=== PATIENT | male | born 1980 | race Caucasian/White ===

== ENCOUNTER 2018-12-09 10:34 | Inpatient (IN) | payer SELFPAY ==
[2018-12-09] MEDS ORDERED: LIDOCAINE 1% MPF 5 ML VIAL ONE (11:02)
[2018-12-09] MEDS ORDERED: TETANUS & DIPHTHERIA TOX,ADULT 0.5 ML VIAL ONE (11:02)
--- NOTE | 2018-12-09 11:38 | RAD REPORT ---
EXAM DESCRIPTION: RAD - Hand Right 3 View - 12/09/2018 11:27 am CLINICAL HISTORY: Pain;Swelling COMPARISON: No comparisons FINDINGS: Significant soft tissue swelling is seen along the dorsal aspect of the hand. No subcutane ous gas is present. No fracture or foreign body. No finding to indicate osteomyelitis.
[2018-12-09] MEDS ORDERED: PIPER/TAZO/NS 3.375gm 3.375 GM/100 ML BAG ONE (12:23)
[2018-12-09] MEDS ORDERED: VANCOMYCIN/NS 1 gm 1 GM/250 ML BAG IV SCH (12:30)
[2018-12-09] MEDS ORDERED: KETOROLAC 30 MG/ML INJ ONE (13:04)
[2018-12-09 13:24] LABS: Absolute Lymphocytes (CBC) 2.6 K/uL (0.7-4.9); Basophils % 0.8 % (0-1.3); Hematocrit 37.7 % (39.6-49.0); Lymphocytes % 27.1 % (15.3-44.8)
[2018-12-09 13:31] LABS: ALT/SGPT 32 U/L (12-78); AST/SGOT 22 U/L (15-37); Albumin 3.9 g/dL (3.4-5.0); Alkaline Phosphatase 80 U/L (45-117); BUN Blood Urea Nitrogen 14 mg/dL (7-18); Bicarbonate 27 mmol/L (21-32); Bilirubin Total 0.3 mg/dL (0.2-1.0); Glucose Level 109 mg/dL (74-106); Potassium 3.5 mmol/L (3.5-5.1); Protein, Total 7.6 g/dL (6.4-8.2); Sodium Level 137 mmol/L (136-145)
--- NOTE | 2018-12-09 14:20 | ER ---
Nurse's Notes [facility] Name: Amado Beard Age: 38 yrs Sex: Male : 1980 Arrival Date: 12/09/2018 Time: 10:37 Bed 23 Private MD: Diagnosis: Cellulitis of right upper limb Presentation: 12/09 10:41 Presenting complaint: Patient states: I was injecting IV and missed in my right hand, la1 now I have an abscess. Transition of care: patient was not received from another setting of care. Onset of symptoms was December 09, 2018. Risk Assessment: Do you want to hurt yourself or someone else? Patient reports no desire to harm self or others. Initial Sepsis Screen: Does the patient meet any 2 criteria? No. Patient's initial sepsis screen is negative. Does the patient have a suspected source of infection? No. Patient's initial sepsis screen is negative. Care prior to arrival: None. 10:41 Method Of Arrival: Ambulatory la1 10:41 Acuity: WIL 3 la1 Historical: - Allergies: 10:42 No Known Allergies; la1 - Home Meds: 10:42 None [Active]; la1 - PMHx: 10:42 None; la1 - PSHx: 10:42 None; la1 - Immunization history:: Adult Immunizations up to date. - Social history:: Smoking status: Patient uses tobacco products, smokes one pack cigarettes per day. - Ebola Screening: : No symptoms or risks identified at this time. Screenin:53 Abuse screen: Denies threats or abuse. Denies injuries from another. Nutritional aj1 screening: No deficits noted. Tuberculosis screening: No symptoms or risk factors identified. 16:44 Fall Risk None identified. aj1 Assessment: 10:53 General: Appears in no apparent distress. uncomfortable, Behavior is calm, cooperative, aj1 appropriate for age. Pain: Complains of pain in right hand Pain currently is 10 out of 10 on a pain scale. Neuro: Level of Consciousness is awake, alert, obeys commands. Cardiovascular: Patient's skin is warm and dry. Respiratory: Airway is patent Respiratory effort is even, unlabored, Respiratory pattern is regular, symmetrical. GI: No signs and/or symptoms were reported involving the gastrointestinal system. : No signs and/or symptoms were reported regarding the genitourinary system. EENT: No signs and/or symptoms were reported regarding the EENT system. Derm: Redness to right hand that extends up to the mid forearm Abscess located on right hand is hot to touch, is red, is raised. Musculoskeletal: No signs and/or symptoms reported regarding the musculoskeletal system. Circulation, motion, and sensation intact. 11:45 Reassessment: Patient appears in no apparent distress at this time. No changes from aj1 previously documented assessment. Patient and/or family updated on plan of care and expected duration. Pain level reassessed. Patient is alert, oriented x 3, equal unlabored respirations, skin warm/dry/pink. 12:45 Reassessment: Patient appears in no apparent distress at this time. No changes from aj1 previously documented assessment. Patient and/or family updated on plan of care and expected duration. Pain level reassessed. Patient is alert, oriented x 3, equal unlabored respirations, skin warm/dry/pink. 13:39 Reassessment: Patient appears in no apparent distress at this time. No changes from aj1 previously documented assessment. Patient and/or family updated on plan of care and expected duration. Pain level reassessed. Patient is alert, oriented x 3, equal unlabored respirations, skin warm/dry/pink. 14:30 Reassessment: Patient and/or family updated on plan of care and expected duration. Pain aj1 level reassessed. General: Appears in no apparent distress. comfortable, Behavior is calm, cooperative. Pain: Complains of pain in right hand. Neuro: Level of Consciousness is awake, alert, obeys commands. Cardiovascular: Patient's skin is warm and dry. Respiratory: Airway is patent Respiratory effort is even, unlabored, Respiratory pattern is regular, symmetrical. Derm: redness that extends midway up right forearm Abscess located on right hand is hot to touch, is red, is raised. 15:25 Reassessment: Patient appears in no apparent distress at this time. No changes from aj1 previously documented assessment. Patient and/or family updated on plan of care and expected duration. Pain level reassessed. Patient is alert, oriented x 3, equal unlabored respirations, skin warm/dry/pink. 16:43 Reassessment: Patient appears in no apparent distress at this time. No changes from aj1 previously documented assessment. Patient and/or family updated on plan of care and expected duration. Pain level reassessed. Patient is alert, oriented x 3, equal unlabored respirations, skin warm/dry/pink. Vital Signs: 10:42 BP 137 / 95; Pulse 94; Resp 16; Temp 97.6; Pulse Ox 100% on R/A; Weight 4.54 kg; Height la1 5 ft. 10 in. (177.80 cm); 15:00 BP 118 / 90; Pulse 74; Resp 18; Pulse Ox 97% on R/A; aj1 16:21 BP 126 / 87; Pulse 82; Resp 16; Pulse Ox 100% on R/A; aj1 10:42 Body Mass Index 1.43 (4.54 kg, 177.80 cm) la1 ED Course: 10:37 Patient arrived in ED. mr 10:42 Triage completed. la1 10:42 Dipak Bess NP is PHCP. pm1 10:42 Arnold Brooks MD is Attending Physician. pm1 10:42 Arm band placed on right wrist. la1 10:49 Aundrea Albert RN is Primary Nurse. aj1 10:53 Patient has correct armband on for positive identification. Call light in reach. aj1 10:53 No provider procedures requiring assistance completed. aj1 11:25 X-ray completed. Portable x-ray completed in exam room. Patient tolerated procedure mh1 well. 11:28 Hand Right 3 View XRAY In Process Unspecified. EDMS 12:45 Inserted saline lock: 22 gauge in right antecubital area, using aseptic technique. aj1 Blood collected. 14:19 Eben Ng MD is Hospitalizing Provider. pm1 16:21 Report given to SAMIR Moran on 4th floor. aj1 16:42 Patient admitted, IV remains in place. aj1 Administered Medications: 13:08 Drug: Tetanus-Diphtheria Toxoid Adult 0.5 ml {Admitting Counselor: [employer]. Exp: aj1 07/15/2020. Lot #: [id number]. } Route: IM; Site: left deltoid; 13:30 Follow up: Response: No adverse reaction aj1 13:08 Drug: Zosyn 3.375 grams Route: IVPB; Infused Over: 60 mins; Site: right antecubital; aj1 14:10 Follow up: IV Status: Completed infusion; IV Intake: 100ml aj1 13:31 Drug: TORadol - Ketorolac 15 mg Route: IVP; Site: right antecubital; aj1 14:00 Follow up: Response: No adverse reaction aj1 14:30 Drug: vancoMYCIN 1 grams Route: IVPB; Infused Over: 2 hrs; Site: right antecubital; aj1 16:42 Not Given (Physician Discretion): Lidocaine (1 %) 5 ml 5 ml Infiltration once; to aj1 bedside Intake: 14:10 IV: 100ml; Total: 100ml. aj1 Outcome: 14:20 Decision to Hospitalize by Provider. pm1 16:44 Admitted to Med/surg accompanied by tech, via wheelchair, with chart. aj1 16:44 Condition: good 16:44 Discharge instructions given to patient, Instructed on the need for admit, Demonstrated understanding of instructions. 16:44 Patient left the ED. aj1 Signatures: Dispatcher [employer] EDMS Aundrea Albert RN RN aj1 Nicole Anders Rashaun Prealesha [facility] Westley Gonzáles RN RN la1 Dipak Bess, NUCLEAR PLANT EQUIPMENT OPERATOR NUCLEAR PLANT EQUIPMENT OPERATOR pm1 Corrections: (The following items were deleted from the chart) 12:07 10:41 Acuity: WIL 4 la1 la1
--- NOTE | 2018-12-09 14:21 | EDPHYS ---
Physician Documentation [facility] Name: Amado Beard Age: 38 yrs Sex: Male : 1980 Arrival Date: 12/09/2018 Time: 10:37 Bed 23 Private MD: ED Physician Arnold Brooks HPI: 12/09 12:15 This 38 yrs old Male presents to ER via Ambulatory with complaints of Abscess.pm1 12:15 The patient presents with an abscess of the right hand, the patient presents with a pm1 swollen area of the right hand. Description: raised, swollen, tense. Onset: The symptoms/episode began/occurred 2 day(s) ago. Possible cause(s): drug injection into right hand. Associated signs and symptoms: Pertinent negatives: discharge, drainage, foreign body sensation, fever. Modifying factors: the symptoms are alleviated by nothing, the symptoms are aggravated by touching. Severity of symptoms: in the emergency department the symptoms are actually worse. The patient has not experienced similar symptoms in the past. The patient has not recently seen a physician. Historical: - Allergies: 10:42 No Known Allergies; la1 - Home Meds: 10:42 None [Active]; la1 - PMHx: 10:42 None; la1 - PSHx: 10:42 None; la1 - Immunization history:: Adult Immunizations up to date. - Social history:: Smoking status: Patient uses tobacco products, smokes one pack cigarettes per day. - Ebola Screening: : No symptoms or risks identified at this time. ROS: 12:15 Constitutional: Negative for fever, chills, and weight loss, Eyes: Negative for injury, pm1 pain, redness, and discharge, ENT: Negative for injury, pain, and discharge, Neck: Negative for injury, pain, and swelling, Cardiovascular: Negative for chest pain, palpitations, and edema, Respiratory: Negative for shortness of breath, cough, wheezing, and pleuritic chest pain, Abdomen/GI: Negative for abdominal pain, nausea, vomiting, diarrhea, and constipation, Back: Negative for injury and pain. 12:15 MS/extremity: Positive for pain, swelling, tenderness, of the right hand. 12:15 Skin: Positive for cellulitis, of the dorsal aspect of right forearm, right wrist and right hand, Abscess right hand. Exam: 12:15 Constitutional: This is a well developed, well nourished patient who is awake, alert, pm1 and in no acute distress. Head/Face: Normocephalic, atraumatic. Neck: Trachea midline, no thyromegaly or masses palpated, and no cervical lymphadenopathy. Supple, full range of motion without nuchal rigidity, or vertebral point tenderness. No Meningismus. Chest/axilla: Normal chest wall appearance and motion. Nontender with no deformity. No lesions are appreciated. Cardiovascular: Regular rate and rhythm with a normal S1 and S2. No gallops, murmurs, or rubs. Normal PMI, no JVD. No pulse deficits. Respiratory: Lungs have equal breath sounds bilaterally, clear to auscultation and percussion. No rales, rhonchi or wheezes noted. No increased work of breathing, no retractions or nasal flaring. Abdomen/GI: Soft, non-tender, with normal bowel sounds. No distension or tympany. No guarding or rebound. No evidence of tenderness throughout. Back: No spinal tenderness. No costovertebral tenderness. Full range of motion. 12:15 Musculoskeletal/extremity: Extremities: grossly normal except: noted in the right arm and right wrist and dorsal aspect of right forearm: erythema, swelling, tenderness, noted in the right hand: abscess . Vital Signs: 10:42 BP 137 / 95; Pulse 94; Resp 16; Temp 97.6; Pulse Ox 100% on R/A; Weight 4.54 kg; Height la1 5 ft. 10 in. (177.80 cm); 15:00 BP 118 / 90; Pulse 74; Resp 18; Pulse Ox 97% on R/A; aj1 16:21 BP 126 / 87; Pulse 82; Resp 16; Pulse Ox 100% on R/A; aj1 10:42 Body Mass Index 1.43 (4.54 kg, 177.80 cm) la1 MDM: 10:42 Patient medically screened. pm1 11:45 Counseling: I had a detailed discussion with the patient and/or guardian regarding: the pm1 historical points, exam findings, and any diagnostic results supporting the discharge/admit diagnosis, the need for further work-up and treatment in the hospital. 11:45 ED course: Dr. Lauren evaluated patient's hand and recommended that I\T\D be performed pm1 by hand surgeon instead of me. 12:03 Data reviewed: vital signs. Data interpreted: Pulse oximetry: on room air is 100 %. pm1 Interpretation: normal. 13:54 Refusal of service: The patient/guardian displays adequate decision making capability pm1 and despite a detailed discussion of alternatives, benefits, risks, and consequences refuses: Admission to the hospital for further work-up and treatment, Educated patient further on need for treatment in the hospital and evaluation by hand surgeon. Will need to transfer the patient due to lack of speciality here in the hospital. Asked patient to reconsider and will check with the patient in a few minutes. 14:15 Physician consultation: Fred Mehta MD was called at 14:08, was contacted at 14:08, pm1 would like admission per Dr. Eben Ng MD in the emergency department to see patient at 14:15, NPO at midnight. 14:47 Physician consultation: Eben Ng MD was called at 14:49, was contacted at 14:49, pm1 regarding admission, patient's condition, and will see patient. 12/09 11:50 Order name: CBC with Diff; Complete Time: 13:38 pm1 12/09 11:50 Order name: CMP; Complete Time: 13:38 pm1 12/09 10:58 Order name: Hand Right 3 View XRAY; Complete Time: 11:44 pm1 12/09 12:07 Order name: Blood Culture Adult (2) pm1 12/09 10:58 Order name: Incision \T\ Drainage Setup; Complete Time: 11:01 pm1 12/09 11:50 Order name: IV Saline Lock; Complete Time: 13:15 pm1 12/09 15:02 Order name: Diet Regular; Complete Time: 15:03 aj1 Administered Medications: 13:08 Drug: Tetanus-Diphtheria Toxoid Adult 0.5 ml {[employer] Man: [employer]. Exp: aj1 07/15/2020. Lot #: [id number]. } Route: IM; Site: left deltoid; 13:30 Follow up: Response: No adverse reaction aj 13:08 Drug: Zosyn 3.375 grams Route: IVPB; Infused Over: 60 mins; Site: right antecubital; aj 14:10 Follow up: IV Status: Completed infusion; IV Intake: 100ml aj1 13:31 Drug: TORadol - Ketorolac 15 mg Route: IVP; Site: right antecubital; aj1 14:00 Follow up: Response: No adverse reaction aj1 14:30 Drug: vancoMYCIN 1 grams Route: IVPB; Infused Over: 2 hrs; Site: right antecubital; aj1 16:42 Not Given (Physician Discretion): Lidocaine (1 %) 5 ml 5 ml Infiltration once; to aj1 bedside Disposition: 12/10 05:51 Co-signature as Attending Physician, rAnold Brooks MD I agree with the assessment and john plan of care. PA/SENIOR PROGRAM ANALYST's history reviewed, patient interviewed, and examined. Disposition: 12/09/18 14:20 Hospitalization ordered by Eben Ng for Inpatient Admission. Preliminary diagnosis is Cellulitis of right upper limb. - Bed requested for Telemetry/MedSurg (Inpatient). - Status is Inpatient Admission. aj1 - Condition is Stable. - Problem is new. - Symptoms have improved. UTI on Admission? No Signatures: Dispatcher [employer] EDMS Tamra Mohr Angela, RN RN aj1 Arnold Brooks MD MD cha Attema, Lee, RN RN la1 Dipak Bess, RAPHAEL SENIOR PROGRAM ANALYST pm1 Corrections: (The following items were deleted from the chart) 12/09 15:32 14:20 Hospitalization Ordered by Eben Ng MD for Inpatient Admission. Preliminary bd diagnosis is Cellulitis of right upper limb. Bed requested for Telemetry/MedSurg (Inpatient). Status is Inpatient Admission. Condition is Stable. Problem is new. Symptoms have improved. UTI on Admission? No. pm1 16:44 15:32 12/09/2018 14:20 Hospitalization Ordered by Eben Ng MD for Inpatient aj1 Admission. Preliminary diagnosis is Cellulitis of right upper limb. Bed requested for Telemetry/MedSurg (Inpatient). Status is Inpatient Admission. Condition is Stable. Problem is new. Symptoms have improved. UTI on Admission? No. bd
--- NOTE | 2018-12-09 16:03 | P.HP ---
Certification for Inpatient Patient admitted to: Inpatient With expected LOS: >2 Midnights Practitioner: I am a practitioner with admitting privileges, knowledge of patient current condition, hospital course, and medical plan of care. Services: Services provided to patient in accordance with Admission requirements found in Title 42 Section 412.3 of the Code of Federal Regulations Patient History Date of Service: 12/09/18 Reason for admission: right hand abscess History of Present Illness: This is a 38 yr old IVD user male with no other medical history who presented to the ER with Right hand swelling and a boil after shooting up meth and missing his veins. He states, this happened a few days ago. He endorses pain to the area but no other fevers, chills, N/V, CP, SOB, RUIZ, vision/speech changes , light headedness. He states that he also had a similar episode on the other hand a while ago, he had swelling but it resolved on its own. He uses IV heroine as well as methamphetamines. He started a few years ago and states he does not do it consistently or too often. He is a current 1 -2 PPD smoker for 24 yrs. In the ER, patient was HDS with BP of 137/95, HR 95, RR 16, afebrile 97.6 and 100% on RA. His labs were unremarkable. Hand X-ray showed soft tissue swelling without OM findings. Dr. Mehta was consulted from the ER, and saw the patient in the ER. At the time of my exam, he was AAOx3, in mild distress due to pain and hemodynamically stable. Allergies NKDA Allergy (Uncoded 07/20/13 04:55) Unknown No Known Allergi Allergy (Uncoded 09/19/15 16:23) Unknown Home medications list reviewed: Yes - Past Medical/Surgical History Diabetic: No Past Medical History: Patient denies medical history - Social History Smoking Status: Current every day smoker Smoking therapy provided: Yes Patient receptive to therapy: No CD- Drugs: Yes Review of Systems 10-point ROS is otherwise unremarkable Physical Examination - Physical Exam General: Alert, In no apparent distress, Oriented x3 HEENT: Atraumatic, PERRLA, Mucous membr. moist/pink, EOMI, Sclerae nonicteric Neck: Supple, 2+ carotid pulse no bruit, No LAD, Without JVD or thyroid abnormality Respiratory: Clear to auscultation bilaterally, Normal air movement Cardiovascular: Regular rate/rhythm, Normal S1 S2 Gastrointestinal: Normal bowel sounds, No tenderness Musculoskeletal: Swelling (Right hand; area of abscess noted on right hand, tenderness up to right elbow. Neurovascularly intact), Erythema, Tenderness, Warmth Integumentary: No rashes Neurological: Normal gait, Normal speech, Normal strength at 5/5 x4 extr, Normal tone, Normal affect Lymphatics: No axilla or inguinal lymphadenopathy - Studies Laboratory Data (last 24 hrs) 12/09/18 12:55: Sodium 137, Potassium 3.5, BUN 14, Creatinine 0.78, Glucose 109 H, Total Bilirubin 0.3, AST 22, ALT 32, Alkaline Phosphatase 80 12/09/18 12:55: WBC 9.7, Hgb 13.5 L, Hct 37.7 L, Plt Count 326 Assessment and Plan - Problems (Diagnosis) (1) Abscess of right hand Current Visit: Yes Status: Acute Plan: Secondary to IV/needle use -IV antibiotics for broad spectrum coverage: Vancomycin and cefepime -Dr. Mehta consulted, recommendations appreciated. Patient pending OR for I& D tomorrow. -NPO after midnight -Monitor vitals and labs (2) IV drug user Current Visit: Yes Status: Acute Plan: Counseled -Patient endorses to using heroine and methamphetamines - Plan DVT Prophylaxis: Hold Chem AC for surgery tomorrow GI Prophylaxis: None Diet: Regular; NPO post midnight Disposition: Pending OR tomorrow for I&D with Dr. Mehta. - Advance Directives Does patient have a Living Will: No Does patient have a Durable POA for Healthcare: No
[2018-12-09] MEDS ORDERED: ONDANSETRON 4 MG/2 ML VIAL IV PRN (17:20)
[2018-12-09 17:43] VITALS: BMI 27.2
[2018-12-09] MEDS: NA CHLORIDE 0.9% 1,000 ML IV SCH (18:17)
[2018-12-09] MEDS: MORPHINE 4 MG/ML SYR IV PRN (20:39)
[2018-12-09] MEDS ORDERED: INFLUENZA VACCINE (for 3y+) 0.5 ML DOSE IMVAC ONE (21:00)
[2018-12-09] MEDS ORDERED: POTASSIUM CL SA 10 MEQ TAB PO ONE (21:00)
[2018-12-10] MEDS: MORPHINE 4 MG/ML SYR IV PRN ×4 (01:05→22:08)
[2018-12-10] MEDS: NA CHLORIDE 0.9% 1,000 ML IV SCH ×4 (05:15→23:20)
[2018-12-10 05:35] LABS: ALT/SGPT 30 U/L (12-78); AST/SGOT 22 U/L (15-37); Albumin 3.2 g/dL (3.4-5.0); Alkaline Phosphatase 73 U/L (45-117); BUN Blood Urea Nitrogen 14 mg/dL (7-18); Bicarbonate 28 mmol/L (21-32); Bilirubin Total 0.4 mg/dL (0.2-1.0); Glucose Level 85 mg/dL (74-106); Potassium 4.6 mmol/L (3.5-5.1); Protein, Total 6.5 g/dL (6.4-8.2); Sodium Level 142 mmol/L (136-145)
[2018-12-10 05:51] LABS: Absolute Lymphocytes (CBC) 2.7 K/uL (0.7-4.9); Basophils % 0.7 % (0-1.3); Hematocrit 37.9 % (39.6-49.0); MPV 8.1 fL (7.6-11.3); RBC Red Blood Cell Count 4.16 M/uL (4.33-5.43)
[2018-12-10 08:48] LABS: Blood Morphology Comment NOT SEEN (NOT SEEN); Platelet Estimate ADEQ; Urine White Blood Cell Casts OK
--- NOTE | 2018-12-10 10:23 | P.PN ---
Subjective Date of Service: 12/10/18 Chief Complaint: right hand abscess Subjective: No new changes Patient seen and examined at bedside. Chart reviewed and case discussed with nursing staff. Pending I&D of hand with Dr. herrera Review of Systems 10-point ROS is otherwise unremarkable Physical Examination - Vital Signs Temperature: 97.1 F Blood Pressure: 107/65 Pulse: 51 Respirations: 17 Pulse Ox (%): 100 - Physical Exam General: Alert, In no apparent distress, Oriented x3 HEENT: Atraumatic, PERRLA, EOMI Neck: Supple, JVD not distended Respiratory: Clear to auscultation bilaterally, Normal air movement Cardiovascular: Regular rate/rhythm, Normal S1 S2 Gastrointestinal: Normal bowel sounds, No tenderness Musculoskeletal: Erythema, Tenderness, Warmth (Right hand) Neurological: Normal speech, Normal tone, Normal affect Lymphatics: No axilla or inguinal lymphadenopathy - Studies Laboratory Data (last 24 hrs) 12/09/18 12:55: Sodium 137, Potassium 3.5, BUN 14, Creatinine 0.78, Glucose 109 H, Total Bilirubin 0.3, AST 22, ALT 32, Alkaline Phosphatase 80 12/09/18 12:55: WBC 9.7, Hgb 13.5 L, Hct 37.7 L, Plt Count 326 Assessment And Plan - Current Problems (Diagnosis) (1) Abscess of right hand Current Visit: Yes Status: Acute Plan: Secondary to IV/needle use -IV antibiotics for broad spectrum coverage: Vancomycin and cefepime -Dr. Herrera consulted, recommendations appreciated. Patient pending OR for I& D today. -NPO after midnight -Monitor vitals and labs (2) IV drug user Current Visit: Yes Status: Acute Plan: Counseled -Patient endorses to using heroine and methamphetamines - Plan DVT Prophylaxis: Hold Chem AC for surgery tomorrow GI Prophylaxis: None Diet: Regular; NPO post midnight Disposition: Pending OR today for I&D with Dr. Herrera.
[2018-12-10] MEDS: VANCOMYCIN 1.5 GM in NA CHLORIDE 0.9% 500 ML IVPB SCH (11:23)
[2018-12-10] MEDS: CEFEPIME/SWI 1gm 10 ML IV SCH ×2 (11:24→16:08)
[2018-12-10] MEDS ORDERED: FENTANYL CITR 100 MCG/2 ML ONE (11:32)
[2018-12-10] MEDS ORDERED: MIDAZOLAM HCL 2 MG/2 ML INJ ONE ×3 (11:32→13:40)
[2018-12-10] MEDS ORDERED: PROPOFOL 200 MG/20 ML VIAL IV ONE (11:32)
[2018-12-10] MEDS ORDERED: LIDOCAINE 2% MPF 5 ML VIAL ONE (11:33)
[2018-12-10] MEDS ORDERED: ONDANSETRON 4 MG/2 ML VIAL ONE (11:34)
[2018-12-10] MEDS ORDERED: NA CIT/CITRIC AC 30 ML ORAL UDC ONE (11:43)
[2018-12-10] MEDS ORDERED: Ringers Lactate 1,000 ML IV ONE (12:43)
[2018-12-10] MEDS ORDERED: PROMETHAZINE 25 MG/ML VIAL ONE (13:33)
[2018-12-10] MEDS: HYDROMORPHONE HCL 1 MG/ML INJ ONE ×4 (13:34→13:56)
[2018-12-10] MEDS: NICOTINE 21 MG/PAT TD SCH (17:38)
--- NOTE | 2018-12-11 00:17 | OP ---
Surgeon: Fred Mehta MD Preoperative Diagnosis: Abscess of the right dorsal hand. Postoperative Diagnosis: Abscess of the right dorsal hand. Procedure Performed: Incision and drainage of abscess. Anesthesia: General. Description Of Procedure: After satisfactory induction of general anesthesia the right hand was elev ated and then placed on a hand table. A curved incision was made over the abscess, pus was encounter ed. Cultures were taken. Curette was used for debridement and the wound was jet lavage irrigated wi th 3 L of dilute solution. Tourniquet released. Electrocautery was used for hemostasis. Wound pack ed with 1/4-inch Nu Gauze soaked in Betadine and Kerlix. The patient tolerated the procedure well an d returned to recovery. EVERETT/QUIRINO Voice ID: [id number] Report ID: [id number]
[2018-12-11] MEDS: CEFEPIME/SWI 1gm 10 ML IV SCH ×3 (01:52→18:24)
[2018-12-11] MEDS: VANCOMYCIN 1.5 GM in NA CHLORIDE 0.9% 500 ML IVPB SCH ×3 (01:52→21:00)
[2018-12-11 04:37] LABS: Absolute Lymphocytes (CBC) 2.4 K/uL (0.7-4.9); Basophils % 0.7 % (0-1.3); Hematocrit 35.4 % (39.6-49.0); Lymphocytes % 40.4 % (15.3-44.8); MPV 8.1 fL (7.6-11.3); RBC Red Blood Cell Count 3.95 M/uL (4.33-5.43)
[2018-12-11 04:58] LABS: ALT/SGPT 26 U/L (12-78); AST/SGOT 22 U/L (15-37); Albumin 3.1 g/dL (3.4-5.0); Alkaline Phosphatase 65 U/L (45-117); BUN Blood Urea Nitrogen 13 mg/dL (7-18); Bicarbonate 29 mmol/L (21-32); Bilirubin Total 0.4 mg/dL (0.2-1.0); Glucose Level 102 mg/dL (74-106); Protein, Total 6.2 g/dL (6.4-8.2); Sodium Level 140 mmol/L (136-145)
[2018-12-11] MEDS: MORPHINE 4 MG/ML SYR IV PRN ×2 (05:09→08:49)
[2018-12-11] MEDS: NICOTINE 21 MG/PAT TD SCH (07:59)
[2018-12-11] MEDS: NA CHLORIDE 0.9% 1,000 ML IV SCH ×2 (09:20→19:20)
--- NOTE | 2018-12-11 11:15 | P.PN ---
Subjective Date of Service: 12/11/18 Chief Complaint: right hand abscess Subjective: Improving Patient seen and examined at bedside. Chart reviewed and case discussed with nursing staff. s/p I&D of hand with Dr. herrera Doing well post procedure Review of Systems 10-point ROS is otherwise unremarkable Physical Examination - Vital Signs Temperature: 97.6 F Blood Pressure: 111/70 Pulse: 56 Respirations: 16 Pulse Ox (%): 100 - Physical Exam General: Alert, In no apparent distress, Oriented x3 HEENT: Atraumatic, PERRLA, EOMI Neck: Supple, JVD not distended Respiratory: Clear to auscultation bilaterally, Normal air movement Cardiovascular: Regular rate/rhythm, Normal S1 S2 Gastrointestinal: Normal bowel sounds, No tenderness Musculoskeletal: No tenderness Integumentary: Other (right hand: wound opened, no draining, no bleeding. ) Neurological: Normal speech, Normal tone, Normal affect Assessment And Plan - Current Problems (Diagnosis) (1) Abscess of right hand Current Visit: Yes Status: Acute Plan: Secondary to IV/needle use -IV antibiotics for broad spectrum coverage: Vancomycin and cefepime -Dr. Herrera consulted, recommendations appreciated. Patient s/p I&D POD#1 -Monitor vitals and labs -Pending cultures (2) IV drug user Current Visit: Yes Status: Acute Plan: Counseled -Patient endorses to using heroine and methamphetamines - Plan DVT Prophylaxis: Encourage ambulation GI Prophylaxis: None Diet: Regular; Regular Disposition: pending symptomatic improvement. Continue wound care. Anticipate discharge tomorrow.
[2018-12-11 12:19] VITALS: O2SAT 99
--- NOTE | 2018-12-11 15:23 | PN ---
The patient's dressing change being done today. He underwent incision and drainage yesterday to jennifer ceballos present he can go home and do dressing himself. If possible . EVERETT/QUIRINO Voice ID: [id number] Report ID: [id number]
[2018-12-11] MEDS ORDERED: TRAMADOL HCL 50 MG TAB PO PRN (18:34)
[2018-12-11] MEDS: MEPERIDINE HCL 50 MG/ML IM PRN (20:01)
[2018-12-12] MEDS: CEFEPIME/SWI 1gm 10 ML IV SCH ×3 (00:11→15:56)
[2018-12-12 06:54] LABS: Absolute Lymphocytes (CBC) 2.2 K/uL (0.7-4.9); Basophils % 1.1 % (0-1.3); Lymphocytes % 42.2 % (15.3-44.8); RBC Red Blood Cell Count 4.22 M/uL (4.33-5.43)
[2018-12-12 07:07] LABS: ALT/SGPT 32 U/L (12-78); AST/SGOT 27 U/L (15-37); Albumin 3.2 g/dL (3.4-5.0); Alkaline Phosphatase 70 U/L (45-117); BUN Blood Urea Nitrogen 12 mg/dL (7-18); Bicarbonate 30 mmol/L (21-32); Bilirubin Total 0.3 mg/dL (0.2-1.0); Glucose Level 85 mg/dL (74-106); Protein, Total 6.8 g/dL (6.4-8.2); Sodium Level 142 mmol/L (136-145)
[2018-12-12] MEDS: NICOTINE 21 MG/PAT TD SCH (08:08)
[2018-12-12] MEDS: VANCOMYCIN 1.5 GM in NA CHLORIDE 0.9% 500 ML IVPB SCH (08:08)
[2018-12-12] MEDS: MEPERIDINE HCL 50 MG/ML IM PRN (08:18)
[2018-12-12 09:25] LABS: Blood Morphology Comment NOT SEEN (NOT SEEN); Platelet Estimate ADEQ
[2018-12-12] MEDS ORDERED: DIPHENHYDRAMINE 25 MG TAB/CAP PO ONE (12:18)
--- NOTE | 2018-12-12 12:28 | P.DS ---
Admission Date: 12/09/18 Discharge Date: 12/12/18 Disposition: ROUTINE DISCHARGE Discharge Condition: GOOD Reason for Admission: right hand abscess Consultations: Dr. Mehta Procedures: 12/11/2018: I and D of abscess on hand - Problems (1) Abscess of right hand Current Visit: Yes Status: Acute (2) IV drug user Current Visit: Yes Status: Acute Brief History of Present Illness: This is a 38 yr old IVD user male with no other medical history who presented to the ER with Right hand swelling and a boil after shooting up meth and missing his veins. He states, this happened a few days ago. He endorses pain to the area but no other fevers, chills, N/V, CP, SOB, RUIZ, vision/speech changes , light headedness. He states that he also had a similar episode on the other hand a while ago, he had swelling but it resolved on its own. He uses IV heroine as well as methamphetamines. He started a few years ago and states he does not do it consistently or too often. He is a current 1 -2 PPD smoker for 24 yrs. In the ER, patient was HDS with BP of 137/95, HR 95, RR 16, afebrile 97.6 and 100% on RA. His labs were unremarkable. Hand X-ray showed soft tissue swelling without OM findings. Dr. Mehta was consulted from the ER, and saw the patient in the ER. At the time of my exam, he was AAOx3, in mild distress due to pain and hemodynamically stable. Hospital Course: Patient was admitted for an abscess on the right hand, secondary to IV/needle use. He was started on IV antibiotics for broad-spectrum coverage. Dr. her jok he was consulted, patient underwent an I and D. He tolerated the procedure well. Blood cultures remained negative throughout the stay. He was then cleared for discharge by surgery. He was taught how to change bandages and wound care by the nurses prior to discharge. Prior to discharge, he was tolerating an oral diet, he was hemodynamically stable and was done well otherwise clindamycin and doxycycline. Prescription was picked up from the pharmacy for the patient and brought to the hospital prior to patient leaving the hospital. He was counseled on drug usage cessation, the patient did not seem interested in it at this time. His diagnoses and treatment plan was explained to him, all questions were answered and he verbalized understanding. He was then discharged home a safe and stable manner. Vital Signs/Physical Exam: Temp Pulse Resp BP Pulse Ox 97.6 F 65 20 128/63 100 12/12/18 08:00 12/12/18 08:00 12/12/18 08:48 12/12/18 08:00 12/12/18 08:48 General: Alert, In no apparent distress, Oriented x3 HEENT: Atraumatic, PERRLA, EOMI Neck: Supple, JVD not distended Respiratory: Clear to auscultation bilaterally, Normal air movement Cardiovascular: Regular rate/rhythm, Normal S1 S2 Gastrointestinal: Normal bowel sounds, No tenderness Musculoskeletal: No tenderness, Other (Bandage clear, dry and intact) Integumentary: No rashes Neurological: Normal speech, Normal tone, Normal affect Lymphatics: No axilla or inguinal lymphadenopathy Laboratory Data at Discharge: WBC 5.3 K/uL (4.3-10.9) 12/12/18 06:00 Hgb 13.7 g/dL (13.6-17.9) 12/12/18 06:00 Hct 38.0 % (39.6-49.0) L 12/12/18 06:00 Plt Count 283 K/uL (152-406) 12/12/18 06:00 Sodium 142 mmol/L (136-145) 12/12/18 06:00 Potassium 4.0 mmol/L (3.5-5.1) 12/12/18 06:00 BUN 12 mg/dL (7-18) 12/12/18 06:00 Creatinine 0.67 mg/dL (0.55-1.3) 12/12/18 06:00 Glucose 85 mg/dL (74-106) 12/12/18 06:00 Total Bilirubin 0.3 mg/dL (0.2-1.0) 12/12/18 06:00 AST 27 U/L (15-37) 12/12/18 06:00 ALT 32 U/L (12-78) 12/12/18 06:00 Alkaline Phosphatase 70 U/L (45-117) 12/12/18 06:00 Home Medications: RX: Buprenorphine HCl 8 mg SL Q12HR 12/09/18 RX: Clindamycin HCl 150 mg PO Q8H #30 capsule 12/12/18 RX: Doxycycline Hyclate 100 mg PO BID #20 capsule 12/12/18 RX: traMADol HCL [Ultram*] 50 mg PO Q6H PRN #15 tab 12/12/18 New Medications: RX: Clindamycin HCl 150 mg PO Q8H #30 capsule RX: Doxycycline Hyclate 100 mg PO BID #20 capsule RX: traMADol HCL [Ultram*] 50 mg PO Q6H PRN #15 tab PRN Reason: Pain Scale 2-4 (Mild) Patient Discharge Instructions: Please follow up with Dr. Mehta in 1-2 weeks. Return to the emergency room for worsening symptoms Diet: Regular Activity: Ad nupur Followup: Fred Mehta MD [ACTIVE - CAN ADMIT] - Time spent managing pt's care (in minutes): 55
[2018-12-12] MEDS: NA CHLORIDE 0.9% 1,000 ML IV SCH (15:20)
[2018-12-12 16:28] VITALS: BP 142/83; TEMP 97.2
[2018-12-12] MEDS ORDERED: INFLUENZA VACCINE (for 3y+) 0.5 ML DOSE IMVAC ONE (17:00)
== END 2018-12-12 16:39 | disposition home or self-care (01) | DRG 581 ==
LOC: ER 10:34 → ERHOLD 15:18 → 4TH 16:38
PROVIDERS: ADMIT Family Medicine; ATTEND Family Medicine
PROC: 0J9J0ZZ Drainage of Right Hand Subcutaneous Tissue and Fascia, Open Approach (ICD-10-PCS; principal; 2018-12-10 13:00)
DX: L02.511 Cutaneous abscess of right hand (principal); F17.210 Nicotine dependence, cigarettes, uncomplicated; F15.10 Other stimulant abuse, uncomplicated; F11.10 Opioid abuse, uncomplicated
CPT/HCPCS: 36415; 80053; 80202; 85025; 87040; 87070; 87075; 87205; 90471; 90714; 94760; 96365; 96375; 99285; J0692; J1170; J2175; J2250; J2405; J2543; J2550; J2704; J3010; J3370; J7030; J7040; J7120

== ENCOUNTER 2019-03-13 09:30 | Emergency (ER) | payer SELFPAY ==
[2019-03-13] MEDS ORDERED: LIDOCAINE 1% MPF 5 ML VIAL ONE (09:41)
[2019-03-13] MEDS ORDERED: BUPIVACAINE 0.5% PF 10 ML VIAL ONE (09:41)
[2019-03-13] MEDS ORDERED: LIDOCAINE 1% 20 ML MDV ONE (09:43)
[2019-03-13] MEDS ORDERED: CEFAZOLIN/SWI 1gm 1 GM/10 ML SYR ONE (09:47)
[2019-03-13] MEDS ORDERED: TETANUS & DIPHTHERIA TOX,ADULT 0.5 ML VIAL ONE (09:47)
[2019-03-13] MEDS ORDERED: ONDANSETRON 4 MG/2 ML VIAL ONE (09:56)
[2019-03-13] MEDS ORDERED: NA CHLORIDE 0.9% 1,000 ML ONE (09:56)
[2019-03-13] MEDS ORDERED: MORPHINE 4 MG/ML SYR ONE ×2 (09:56→10:24)
[2019-03-13 10:01] LABS: Absolute Lymphocytes (CBC) 2.7 K/uL (0.7-4.9); Basophils % 0.9 % (0-1.3); Lymphocytes % 32.9 % (15.3-44.8); MPV 8.3 fL (7.6-11.3); RBC Red Blood Cell Count 4.73 M/uL (4.33-5.43)
[2019-03-13 10:11] LABS: Potassium 4.4 mmol/L (3.5-5.1)
--- NOTE | 2019-03-13 10:46 | ER ---
Nurse's Notes [facility] Name: Amado Beard Age: 38 yrs Sex: Male : 1980 Arrival Date: 03/13/2019 Time: 09:37 Bed 23 Private MD: Diagnosis: Laceration without foreign body of left thumb with damage to nail-partial distal phalanx amputation Presentation: 03/13 09:37 Presenting complaint: Patient states: amputation to portion of L thumb by chop saw 30 ss minutes ago. Dressing placed by EMS, 17 mg of Ketamine administered for pain control. Transition of care: patient was not received from another setting of care. Onset of symptoms was March 13, 2019. Risk Assessment: Do you want to hurt yourself or someone else? Patient reports no desire to harm self or others. Initial Sepsis Screen: Does the patient meet any 2 criteria? RR > 20 per min. HR > 90 bpm. Does the patient have a suspected source of infection? No. Patient's initial sepsis screen is negative. Care prior to arrival: None. 09:37 Method Of Arrival: Ambulatory ss 09:37 Acuity: WIL 2 ss Historical: - Allergies: 09:42 No Known Allergies; ss - Home Meds: :42 None [Active]; ss - PMHx: 10:07 Hepatitis; ss - PSHx: :42 None; ss - Immunization history:: Adult Immunizations up to date, Last tetanus immunization: up to date. - Social history:: Smoking status: Patient uses tobacco products, smokes one pack cigarettes per day. - Ebola Screening: : Patient denies exposure to infectious person Patient denies travel to an Ebola-affected area in the 21 days before illness onset. Screenin:37 Abuse screen: Denies threats or abuse. Denies injuries from another. Nutritional ss screening: No deficits noted. Tuberculosis screening: Never had TB. Fall Risk None identified. Assessment: 09:37 General: Appears distressed, uncomfortable, Behavior is anxious, crying, restless. ss Pain: Complains of pain in palmar aspect of distal phalanx of left thumb Pain currently is 10 out of 10 on a pain scale. Quality of pain is described as aching, tender, throbbing, gnawing, pulsating, Pain began 30 min ago. Is continuous, Noted to be crying, grimacing, guarding, moaning, restless. Neuro: Level of Consciousness is awake, alert, obeys commands, Oriented to person, place, time, situation. Cardiovascular: Pulses are palpable in right radial artery and left radial artery. Respiratory: Airway is patent Trachea midline Respiratory effort is even, unlabored, Respiratory pattern is regular, symmetrical. GI: Patient currently denies nausea, vomiting. EENT: Nares are clear Oral mucosa is moist. Derm: Skin is intact, is healthy with good turgor, Skin is diaphoretic, Skin is pink, Skin temperature is cool. Musculoskeletal: Amputation of palmar aspect of distal phalanx of left thumb. Range of motion: intact in all extremities. Injury Description: Amputation sustained to palmar aspect of distal phalanx of left thumb is complete, Injury occurred by table saw. 09:37 Reassessment: The amputated portion of the L thumb has been placed in sterile saline ss gauze, on ice. 10:00 Reassessment: wound is oozing at this time, slowly. Wet to dry dressing placed with Kerlix. 10:30 Reassessment: Patient appears in no apparent distress at this time. Patient and/or ss family updated on plan of care and expected duration. Pain level reassessed. Pt appears calm when distracted by conversation whether it be with ED staff and/or speaking on phone. 11:00 General: Report called to SAMIR Lockhart at [facility]. Awaiting EMS transfer. ss 11:15 Reassessment: L hand cleaned with NS and peroxide. Pt tolerated well. Dressing changed. 11:45 Reassessment: Patient appears in no apparent distress at this time. feeling better. ss 11:50 Reassessment: Amputated portion sent with EMS for transportation to receiving facility ss with patient. Vital Signs: 09:42 BP 170 / 110; Pulse 115; Resp 27; Temp 97.6(TE); Pulse Ox 100% on R/A; Weight 86.18 kg; ss Height 5 ft. 10 in. (177.80 cm); Pain 10/10; 11:00 BP 137 / 95; Pulse 103; Resp 24; Pulse Ox 100% on R/A; Pain 9/10; ss 09:42 Body Mass Index 27.26 (86.18 kg, 177.80 cm) ED Course: 09:37 Patient arrived in ED. ss 09:37 Patient has correct armband on for positive identification. Bed in low position. Call ss light in reach. Pulse ox on. NIBP on. 09:37 Maintain EMS IV. Dressing intact. Good blood return noted. Site clean \T\ dry. Gauge \T\ ss site: 20 gauge in R wrist. Patient maintains SpO2 saturation greater than 95% on room air. 09:38 Arnold Hutchinson PA is [facility]. cp 09:38 Arnold Brooks MD is Attending Physician. cp 09:42 Triage completed. ss 09:42 Arm band placed on right wrist. ss 10:04 Yasmin Buckley, SAMIR is Primary Nurse. ss 10:[address] Mehta with Arnold GASPAR for patient consultation. eb 10:17 initiated a transfer with Rosy from the [facility] transfer center. eb 10:22 per Rosy from the [facility] transfer center/ patient denied due to being at capacity. eb 10:26 initiated a transfer with Anahi from the [facility]. eb 10:[address] Barrera the doctor ammonia box operator for [facility] with Arnold GASPAR for patient transfer consultation. 10:39 XRAY Hand LEFT 3 View In Process Unspecified. EDMS 10:39 administrative approval given by Anahi Faulkner Rn/ patient has been to accepted to [facility] ER/ Dr. Pandey has accepted the patient in transfer/ report to be called to [phone]. 11:50 No provider procedures requiring assistance completed. Patient transferred, IV remains ss in place. Administered Medications: 09:58 Drug: Zofran 4 mg Route: IVP; Site: right wrist; ss 10:25 Follow up: Response: No adverse reaction ss 10:00 Drug: Tetanus-Diphtheria Toxoid Adult 0.5 ml {Gravel Screener: [employer]. Exp: ss 01/30/2021. Lot #: [id number]. } Route: IM; Site: right deltoid; 10:25 Follow up: Response: No adverse reaction ss 10:00 Drug: morphine 4 mg Route: IVP; Site: right wrist; ss 10:24 Follow up: Response: Pain is unchanged, physician notified; initial RASS 1, Follow up ss RASS 1 10:00 Drug: NS 0.9% 1000 ml Route: IV; Rate: 1 bolus; Site: right wrist; ss 10:00 Drug: Lidocaine (1 %) 10 mg {Note: administered by PA. Maritza} Volume: 20 ml; ss Route: Infiltration; Site: wound; 10:00 Drug: Bupivacaine (0.5 %) 10 mg {Note: administered by PA. Maritza} Volume: 10 ml; ss Route: Infiltration; Site: wound; 10:07 Drug: Ancef 1 grams Route: IVPB; Site: right wrist; ss 10:25 Drug: morphine 4 mg Route: IVP; Site: right wrist; ss 11:14 Follow up: Response: No adverse reaction; Pain is unchanged, physician notified ss 11:20 Drug: Dilaudid 1 mg Route: IVP; Site: right antecubital; ss 11:30 Follow up: Response: No adverse reaction; Pain is decreased ss Intake: Outcome: 10:46 ER care complete, transfer ordered by . cp 11:50 Transferred by ground EMS to [facility]. ss 11:50 Condition: stable 11:50 Instructed on the need for transfer. 11:53 Patient left the ED. eb Signatures: Dispatcher [employer] EDMS Yasmin Buckley RN RN ss Page, Corey, PA PA cp Botello, Elizabeth eb Corrections: (The following items were deleted from the chart) 10:07 09:42 PMHx: None; ss ss 14:13 14:13 Response: No adverse reaction; Pain is decreased ss ss
--- NOTE | 2019-03-13 10:46 | EDPHYS ---
Physician Documentation [facility] Name: Amado Beard Age: 38 yrs Sex: Male : 1980 Arrival Date: 03/13/2019 Time: 09:37 Bed 23 Private MD: LO Physician Arnold Brooks HPI: 03/13 09:45 This 38 yrs old Male presents to ER via Ambulatory with complaints of Finger cp Injury. 09:45 The patient or guardian reports deformity, injury, pain. The complaints affect the left cp thumb. 09:45 Context: resulted from use of saw. Onset: The symptoms/episode began/occurred just cp prior to arrival. Historical: - Allergies: 09:42 No Known Allergies; ss - Home Meds: 09:42 None [Active]; ss - PMHx: 10:07 Hepatitis; ss - PSHx: 09:42 None; ss - Immunization history:: Adult Immunizations up to date, Last tetanus immunization: up to date. - Social history:: Smoking status: Patient uses tobacco products, smokes one pack cigarettes per day. - Ebola Screening: : Patient denies exposure to infectious person Patient denies travel to an Ebola-affected area in the 21 days before illness onset. ROS: 09:50 MS/extremity: Positive for injury or acute deformity, pain, of the left thumb. cp 09:50 Eyes: Negative for injury, pain, redness, and discharge. cp 09:50 Constitutional: Negative for body aches, chills, fever. 09:50 Respiratory: Negative for cough, shortness of breath, wheezing. 09:50 Abdomen/GI: Negative for abdominal pain. 09:50 Skin: Positive for laceration(s), of the left thumb. 09:50 All other systems are negative. Exam: 10:00 Constitutional: The patient appears alert, awake, non-toxic, well developed, well cp nourished, in obvious pain, uncomfortable. 10:00 Head/Face: Normocephalic, atraumatic. cp 10:00 Eyes: Periorbital structures: appear normal, Conjunctiva: normal, no exudate, no injection, Lids and lashes: appear normal, bilaterally. 10:00 ENT: External ear(s): are unremarkable, Nose: is normal, Mouth: Lips: moist, Oral mucosa: pink and intact, moist, Posterior pharynx: is normal, airway is patent, no erythema, no exudate. 10:00 Chest/axilla: Inspection: normal. 10:00 Cardiovascular: Rate: tachycardic, Rhythm: regular. 10:00 Respiratory: the patient does not display signs of respiratory distress, Respirations: normal, no use of accessory muscles, no retractions, no splinting, no tachypnea, labored breathing, is not present, Breath sounds: are clear throughout, no decreased breath sounds. 10:00 Abdomen/GI: Inspection: abdomen appears normal. 10:00 Musculoskeletal/extremity: Extremities: grossly normal except: noted in the left thumb: decreased ROM, deformity, pain, partial amputation of distal phalanx left thumb, Severe pain noted. Vital Signs: 09:42 BP 170 / 110; Pulse 115; Resp 27; Temp 97.6(TE); Pulse Ox 100% on R/A; Weight 86.18 kg; ss Height 5 ft. 10 in. (177.80 cm); Pain 10/10; 11:00 BP 137 / 95; Pulse 103; Resp 24; Pulse Ox 100% on R/A; Pain 9/10; ss 09:42 Body Mass Index 27.26 (86.18 kg, 177.80 cm) ss MDM: 09:40 Patient medically screened. john 10:45 Data reviewed: vital signs, nurses notes, lab test result(s), radiologic studies, plain cp films, I have discussed the patient's presentation/case with the attending Emergency Department Physician;. 10:45 Test interpretation: by ED physician or midlevel provider: plain radiologic studies. cp Counseling: I had a detailed discussion with the patient and/or guardian regarding: the historical points, exam findings, and any diagnostic results supporting the discharge/admit diagnosis, lab results, radiology results, the need to transfer to another facility, [facility] does not immediately have the required specialist. Response to treatment: the patient's symptoms have markedly improved after treatment. 11:00 Physician consultation: was called at 10:45, was contacted at 10:45, regarding cp regarding transfer, to [facility]. patient's condition, DR Barrera. 03/13 09:40 Order name: [facility]; Complete Time: 10:14 cp 03/13 10:16 Interpretation: Normal except: CL 108; GLUC 116; BUN 20; GFR 72. cp 03/13 09:40 Order name: CBC with Diff; Complete Time: 10:14 cp 03/13 09:40 Order name: XRAY Hand LEFT 3 View; Complete Time: 11:36 cp 03/13 11:36 Interpretation: Report reviewed. cp 03/13 09:40 Order name: IV; Complete Time: 10:05 cp 03/13 10:30 Order name: Dressing - Wound: wet to dry pressure dressing; Complete Time: 10:33 cp Administered Medications: 09:58 Drug: Zofran 4 mg Route: IVP; Site: right wrist; ss 10:25 Follow up: Response: No adverse reaction ss 10:00 Drug: Tetanus-Diphtheria Toxoid Adult 0.5 ml {Surveillance Director: [employer]. Exp: ss 01/30/2021. Lot #: [id number]. } Route: IM; Site: right deltoid; 10:25 Follow up: Response: No adverse reaction ss 10:00 Drug: morphine 4 mg Route: IVP; Site: right wrist; ss 10:24 Follow up: Response: Pain is unchanged, physician notified; initial RASS 1, Follow up ss RASS 1 10:00 Drug: NS 0.9% 1000 ml Route: IV; Rate: 1 bolus; Site: right wrist; ss 10:00 Drug: Lidocaine (1 %) 10 mg {Note: administered by PA. Maritza} Volume: 20 ml; ss Route: Infiltration; Site: wound; 10:00 Drug: Bupivacaine (0.5 %) 10 mg {Note: administered by PA. Maritza} Volume: 10 ml; ss Route: Infiltration; Site: wound; 10:07 Drug: Ancef 1 grams Route: IVPB; Site: right wrist; ss 10:25 Drug: morphine 4 mg Route: IVP; Site: right wrist; ss 11:14 Follow up: Response: No adverse reaction; Pain is unchanged, physician notified ss 11:20 Drug: Dilaudid 1 mg Route: IVP; Site: right antecubital; ss 11:30 Follow up: Response: No adverse reaction; Pain is decreased ss Disposition: 12:37 Co-signature as Attending Physician, Arnold TRAMMELL I agree with the assessment and john plan of care. Disposition: 03/13/19 10:46 Transfer ordered to [facility]. Diagnosis is Laceration without foreign body of left thumb with damage to nail - partial distal phalanx amputation. - Reason for transfer: Higher level of care. - Accepting physician is Bruce. - Condition is Stable. - Problem is new. - Symptoms have improved. Signatures: Dispatcher [employer] EDArnold Olson MD MD cha Smirch, Shelby, RN RN ss Arnold Hutchinson, PA PA Krystyna Weber Corrections: (The following items were deleted from the chart) 10:07 09:42 PMHx: None; [facility] 11:53 10:46 03/13/2019 10:46 Transfer ordered to [facility]. eb Diagnosis is Laceration without foreign body of left thumb with damage to nail - partial distal phalanx amputation. Reason for transfer: Higher level of care. Accepting physician is Bruce. Condition is Stable. Problem is new. Symptoms have improved. cp
--- NOTE | 2019-03-13 11:08 | RAD REPORT ---
EXAM DESCRIPTION: RAD - Hand Left 3 View - 03/13/2019 10:39 am CLINICAL HISTORY: Chop saw injury to the left thumb COMPARISON: None. FINDINGS: Traumatic amputation of the tuft of the distal phalanx left thumb noted. There are numerou s punctate fracture fragments in the soft tissues. Soft tissue wound is present. No metallic foreign body. Remainder the hand shows no significant finding. IMPRESSION: Traumatic amputation of the distal aspect of the left thumb distal phalanx. Numerous pun ctate bone fragments are present in the soft tissues.
[2019-03-13] MEDS ORDERED: HYDROMORPHONE HCL 1 MG/ML INJ ONE (11:19)
[2019-03-13 12:01] VITALS: TEMP 97.6; O2SAT 100
[2019-03-13 12:02] VITALS: BP 137/95
== END 2019-03-13 11:53 | disposition short-term general hospital (02) ==
LOC: ER 09:30
DX: S68.022A Partial traumatic metacarpophalangeal amputation of left thumb, initial encounter (principal); W27.0XXA Contact with workbench tool, initial encounter; Y93.9 Activity, unspecified; Y92.9 Unspecified place or not applicable; F17.210 Nicotine dependence, cigarettes, uncomplicated
CPT/HCPCS: 36415; 80048; 85025; 90471; 90714; 99285; J0690; J1170; J2405; J7030